=== PATIENT | male | born 1985 | race Caucasian/White ===

== ENCOUNTER 2019-04-10 02:44 | Observation (INO) ==
[2019-04-10] MEDS ORDERED: ONDANSETRON 4 MG/2 ML VIAL IVP ONE (02:58)
[2019-04-10] MEDS ORDERED: Sodium Chloride 0.9% 1,000 ML PRIMARY IV ONE (02:59)
[2019-04-10 03:04] LABS: BASOPHILS # (AUTO) 0.01 10*3/UL; BASOPHILS % (AUTO) 0.1 % (0-1); EOSINOPHILS # (AUTO) 0.02 10*3/UL; EOSINOPHILS % (AUTO) 0.1 % (0-8); Hematocrit [HCT] 43.9 % (42.0-52.0); Hemoglobin [HGB] 15.3 g/dL (14.0-18.0); LYMPHOCYTES # (AUTO) 1.46 10*3/uL; MEAN CORPUSCULAR HGB CONC 34.9 g/dL (33-37); MEAN CORPUSCULAR VOLUME 87.3 FL (80-90); MEAN PLATELET VOLUME 9.9 FL (7.4-12.2); MONOCYTES # (AUTO) 0.66 10*3/UL (0.3-0.8); MONOCYTES % (AUTO) 4.8 % (5-15); NEUTROPHILS # (AUTO) 11.36 10*3/UL; NEUTROPHILS % (AUTO) 83.6 % (50-80); RED BLOOD COUNT 5.03 10^6/uL (4.70-6.10)
[2019-04-10 03:07] LABS: PLATELET MORPHOLOGY COMMENT NORMAL MORPHOLOGY (NORM); RBC MORPHOLOGY COMMENT NORMAL MORPHOLOGY (NORM); WBC MORPHOLOGY COMMENT NORMAL MORPHOLOGY (NORM)
[2019-04-10 03:09] LABS: BLOOD UREA NITROGEN 14 mg/dL (7-22); BUN/CREATININE RATIO 15.55 (6-20); SERUM ALBUMIN 4.6 g/dL (3.5-4.8)
[2019-04-10 03:26] LABS: BILIRUBIN,URINE NEGATIVE (NEG); CLARITY,URINE CLEAR (CLEAR); COLOR,URINE YELLOW (Y); GLUCOSE, URINE (UA) NEGATIVE (NEG); OCCULT BLOOD,URINE NEGATIVE (NEG); PH,URINE 6.5 (5.0-8.5); PROTEIN,URINE NEGATIVE (NEG); UROBILINOGEN,URINE 0.2 EU/dL (0.2)
[2019-04-10 03:27] LABS: URINE SAMPLE TYPE CLEAN CATCH URINE
[2019-04-10] MEDS ORDERED: fentaNYL Inj 100 MCG/2 ML VIAL IVP ONE (03:47)
[2019-04-10] MEDS ORDERED: metroNIDAZOLE 500mg (Premix) 500 MG/100 ML BAG IV ONE (04:00)
[2019-04-10] MEDS ORDERED: cefTRIAXone Inj 2 GM in Sodium Chloride 0.9% 100 ML IV ONE (04:00)
[2019-04-10] MEDS ORDERED: MORPHINE SULFATE 2 MG/1 ML IVP PRN (04:42)
[2019-04-10] MEDS ORDERED: Nasal Sanitizer POPSWAB ampule 3 AMP (Nozin) PREOP DOSE ENOS SCH (04:42)
[2019-04-10] MEDS ORDERED: Lactated Ringers 1,000 ML PRIMARY IV SCH (04:42)
[2019-04-10] MEDS ORDERED: ROCURONIUM 10 MG/1 ML - 5 ML VIAL IVP ONE (06:49)
[2019-04-10] MEDS ORDERED: MIDAZOLAM HCL 2 MG/2 ML VIAL ONE (06:50)
[2019-04-10] MEDS ORDERED: LIDOCAINE MPF 2% - 5 ML (20 MG/1 ML) ONE (06:51)
[2019-04-10] MEDS ORDERED: PROPOFOL 10 MG/1 ML (200 MG/20 ML) VIAL IV ONE (06:51)
[2019-04-10] MEDS ORDERED: fentaNYL Inj 250 MCG/5 ML VIAL ONE (06:51)
[2019-04-10] MEDS ORDERED: BUPivacaine Inj 0.25% PF - 10ml vial ONE ×2 (06:57→07:03)
[2019-04-10] MEDS ORDERED: Sodium Chloride 0.9% vial 10 ML ONE (06:57)
[2019-04-10] MEDS ORDERED: NALOXONE 0.4 MG/1 ML VIAL IVP PRN (07:04)
[2019-04-10] MEDS ORDERED: KETOROLAC 15 MG/1 ML VIAL IVP PRN (07:04)
[2019-04-10] MEDS ORDERED: Ondansetron ODT Tab 4 MG TAB PO PRN (07:04)
[2019-04-10] MEDS ORDERED: ONDANSETRON 4 MG/2 ML VIAL ONE (07:26)
[2019-04-10] MEDS ORDERED: KETAMINE 100 MG/1 ML - 5 ML ONE (07:26)
[2019-04-10] MEDS ORDERED: KETOROLAC 30 MG/1 ML VIAL ONE (07:26)
[2019-04-10] MEDS ORDERED: SUGAMMADEX SODIUM 200 MG/2 ML VIAL IV ONE (07:39)
[2019-04-10] MEDS ORDERED: cefTRIAXone Inj 1 GM in Sodium Chloride 0.9% 100 ML IV SCH (08:15)
[2019-04-10] MEDS: HYDROcodone-APAP 7.5 MG-325 MG TABLET PO PRN ×2 (10:08→14:01)
[2019-04-10 10:24] VITALS: RESP 16
[2019-04-10] MEDS ORDERED: metroNIDAZOLE 500mg (Premix) 500 MG/100 ML BAG IV SCH (13:00)
[2019-04-10 14:12] VITALS: BP 112/50; TEMP 98; O2SAT 96
[2019-04-11] MEDS ORDERED: cefTRIAXone Inj 2 GM in Sodium Chloride 0.9% 100 ML IV SCH (05:00)
== END 2019-04-10 16:30 | disposition home or self-care (01) ==
LOC: ER 02:44 → MED/SURG 02:44
PROVIDERS: ADMIT Surgery; ATTEND Surgery